=== PATIENT | female | born 1970 | race Caucasian/White ===

== ENCOUNTER 2019-04-26 15:13 | Emergency (ER) | payer MEDICAID ==
[~2019-04-26] VITALS: Ht 177.8 cm; Wt 79.1 kg
[~2019-04-26 15:13] MED LIST: CLIN-96 PO; CLIN150C8 PO; METH-360 PO; ONDA4TAB6 PO
[2019-04-26 15:16] VITALS: BP 97/63
[2019-04-26] MEDS ORDERED: TETanus/Pertussis (Acell)/Diphther VAC/PF (Tdap-Adult) 0.5ml syringe IM ONE (15:30)
== END 2019-04-26 16:23 | disposition home or self-care (01) ==
LOC: ER 15:14
DX: S61.213A Laceration without foreign body of left middle finger without damage to nail, initial encounter (principal); G89.29 Other chronic pain; Z88.1 Allergy status to other antibiotic agents; Z79.2 Long term (current) use of antibiotics; Z79.899 Other long term (current) drug therapy; Z90.49 Acquired absence of other specified parts of digestive tract; Z98.890 Other specified postprocedural states; W26.8XXA Contact with other sharp object(s), not elsewhere classified, initial encounter; Y93.89 Activity, other specified; Y92.810 Car as the place of occurrence of the external cause; Y99.8 Other external cause status
CPT/HCPCS: 12001; 90471; 99283

== ENCOUNTER 2019-10-22 20:10 | Emergency (ER) | payer MEDICAID ==
[~2019-10-22] VITALS: Ht 177.8 cm; Wt 88.6 kg
[2019-10-22 20:10] VITALS: BP 112/70
[~2019-10-22 20:10] MED LIST changes: +CLIN-90 PO; -CLIN-96 PO
[2019-10-22] MEDS ORDERED: ketorolac trometh. 30mg/ml inj. IM ONE (21:05)
[2019-10-22] MEDS ORDERED: CYCL-1 PO (22:35)
== END 2019-10-22 22:48 | disposition home or self-care (01) ==
LOC: ER 20:10
DX: S39.012A Strain of muscle, fascia and tendon of lower back, initial encounter (principal); G89.29 Other chronic pain; Z79.899 Other long term (current) drug therapy; Z90.49 Acquired absence of other specified parts of digestive tract; Z88.1 Allergy status to other antibiotic agents; Z86.2 Personal history of diseases of the blood and blood-forming organs and certain disorders involving the immune mechanism; Z98.84 Bariatric surgery status; W18.39XA Other fall on same level, initial encounter; Y93.89 Activity, other specified; Y92.89 Other specified places as the place of occurrence of the external cause; Y99.8 Other external cause status
CPT/HCPCS: 72100; 72131; 96372; 99284; J1885